=== PATIENT | female | born 1985 | race Caucasian/White ===

== ENCOUNTER 2024-11-08 21:43 | Emergency (ER) | payer OTHER ==
[~2024-11-08] VITALS: Ht 152.4 cm; Wt 79.8 kg
[2024-11-08 23:40] VITALS: TEMP 98.1
[2024-11-09] MEDS ORDERED: KETOROLAC TROMETHAMINE INJ 30 MG/ML VIAL ONE (00:07)
[2024-11-09] MEDS: KETOROLAC TROMETHAMINE 15 MG/ML VIAL IV ONE (00:08)
[2024-11-09 00:20] LABS: BASOPHILS # (AUTO) 0.1 K/uL (0.0-0.2); EOSINOPHILS # (AUTO) 0.1 K/uL (0.0-0.7); EOSINOPHILS % (AUTO) 1.8 % (0.0-6.0); HEMATOCRIT 34 % (33-45); LYMPHOCYTES # (AUTO) 1.9 K/uL (0.8-4.8); LYMPHOCYTES % (AUTO) 34.5 % (20.0-44.0); MEAN CORPUSCULAR HEMOGLOBIN 28 PG (26.0-33.0); MEAN CORPUSCULAR HGB CONC 35 g/dl (31.0-36.0); MEAN CORPUSCULAR VOLUME 81 fL (82-100); MONOCYTES # (AUTO) 0.4 K/uL (0.1-1.30); MONOCYTES % (AUTO) 7.5 % (2.0-12.0); NEUTROPHILS # (AUTO) 3.1 K/uL (1.8-8.9); NEUTROPHILS % (AUTO) 55.2 % (43.0-81.0); PLATELET COUNT (AUTO) 237 K/uL (150-450); RED BLOOD CELL COUNT(AUTO) 4.28 MIL/uL (4.0-5.2); RED CELL DISTRIBUTION WIDTH 13.5 % (11.5-15.0); WHITE BLOOD COUNT (AUTO) 5.6 K/uL (4.3-11.0)
[2024-11-09 00:29] LABS: CARBON DIOXIDE 27 mmol/L (21-32); CHLORIDE 108 mmol/L (98-107); CREATININE 0.5 mg/dL (0.6-1.3); GLUCOSE 97 mg/dL (74-106); POTASSIUM 3.8 mmol/L (3.5-5.1); SODIUM SERUM 144 mmol/L (136-145); UREA NITROGEN, BLOOD 11 mg/dL (7-18)
[2024-11-09] MEDS ORDERED: IBUP-1490 PO (01:15)
[2024-11-09] MEDS: ACETAMINOPHEN ES 500 MG TABLET PO ONE (02:30)
[2024-11-09 04:48] VITALS: BP 144/90; O2SAT 97
== END 2024-11-09 01:37 | disposition home or self-care (01) ==
LOC: ER 21:46
DX: N64.4 Mastodynia (principal); R07.89 Other chest pain; R06.02 Shortness of breath
CPT/HCPCS: 99285; 71045; 93005; 36415; 96374; 85025; 80048; 84484; J1885